=== PATIENT | male | born 1995 | race Caucasian/White ===

== ENCOUNTER 2017-05-27 23:02 | Emergency (ER) | payer OTHER ==
[~2017-05-27] VITALS: Ht 203.2 cm; Wt 103.0 kg
[2017-05-27 23:04] VITALS: BP 128/80
[2017-05-27] MEDS ORDERED: ONDANSETRON ODT 4 MG ONE (23:57)
[2017-05-27] MEDS ORDERED: OXYcodone/APAP 5/325MG TABLET ONE (23:58)
[2017-05-28] MEDS ORDERED: OXYcodone/APAP 5/325MG TABLET PO ONE
[2017-05-28] MEDS ORDERED: ONDANSETRON ODT 4 MG PO ONE
== END 2017-05-28 00:57 | disposition home or self-care (01) ==
LOC: ED 05-28 00:45
DX: S52.591A Other fractures of lower end of right radius, initial encounter for closed fracture (principal); W18.39XA Other fall on same level, initial encounter; Y93.64 Activity, baseball; Y92.320 Baseball field as the place of occurrence of the external cause; Y99.8 Other external cause status
CPT/HCPCS: 29125; 73080; 73110; 99284; Q0162